=== PATIENT | male | born 1990 | race Caucasian/White ===

== ENCOUNTER 2021-03-12 03:05 | Emergency (ER) | payer SELFPAY ==
[~2021-03-12] VITALS: Ht 165.1 cm; Wt 102.1 kg
[2021-03-12 03:08] VITALS: BP 210/129
[2021-03-12] MEDS ORDERED: LIDOCAINE/EPI 1% 1:100000 20 ML VIAL INJ ONE ×2 (03:26→03:35)
[2021-03-12] MEDS ORDERED: CLONIDINE HYDROCHLORIDE 0.1 MG TAB PO ONE (03:35)
[2021-03-12] MEDS ORDERED: LISI-487 PO (04:54)
[2021-03-12 04:59] VITALS: BP 160/98
== END 2021-03-12 05:00 | disposition home or self-care (01) ==
LOC: MED 03:05
DX: S01.511A Laceration without foreign body of lip, initial encounter (principal); E11.9 Type 2 diabetes mellitus without complications; W19.XXXA Unspecified fall, initial encounter; Y93.89 Activity, other specified; Y92.89 Other specified places as the place of occurrence of the external cause; Y99.8 Other external cause status
CPT/HCPCS: 40650; 99284; J2001